=== PATIENT | female | born 2000 | race Caucasian/White ===

== ENCOUNTER 2022-06-07 11:50 | Emergency (ER) | payer MEDICAID ==
[~2022-06-07] VITALS: Ht 162.6 cm; Wt 49.9 kg
--- NOTE | 2022-06-07 12:00 | NUR ---
DR. OSCAR AT BEDSIDE TO ASSESS PT.
--- NOTE | 2022-06-07 12:05 | NUR ---
RECEIVED PT FROM [facility]. PT HAS C/O SORE THROAT AND NONPRODUCTIVE COUGH X 3 DAYS. PT IS AAOX4. NO ROOM AIR, DRY COUGH NOTED. NORMAL S1S2. DENIES N/V/D/C. SKIN WARM, INTACT, NO EDEMA. DENIES PAIN. SIDERAILS UP X2.
--- NOTE | 2022-06-07 12:06 | NUR ---
DR. OSCAR AT BEDSIDE TO ASSESS PT.
--- NOTE | 2022-06-07 12:25 | NUR ---
CXR COMPLETED. LAB SAMPLES OBTAINED.
[2022-06-07 12:34] VITALS: BP_SYST 136
[2022-06-07] MEDS ORDERED: IBUP-1969 PO (13:29)
[2022-06-07] MEDS ORDERED: NIRM1TAB5 PO (13:29)
[2022-06-07 13:50] VITALS: BP_SYST 125
--- NOTE | 2022-06-07 13:55 | NUR ---
Patient given written and verbal discharge instructions and verbalizes understanding. ER MD discussed with patient the results and treatment provided. Patient in stable condition. ID arm band removed. IV catheter removed intact and dressing applied, no active bleeding. Rx of PAXLOVID,IBUPROFEN given. Patient educated on pain management and to follow up with PMD. Pain Scale 0/10. Opportunity for questions provided and answered. Medication side effect fact sheet provided.
== END 2022-06-07 13:50 | disposition home or self-care (01) ==
LOC: SED 11:50
DX: U07.1 COVID-19 (principal); J40 Bronchitis, not specified as acute or chronic; R05.9 Cough, unspecified; R09.81 Nasal congestion; Z79.899 Other long term (current) drug therapy
CPT/HCPCS: 36415; 71045; 81025; 99284